=== PATIENT | female | born 2000 | race Two or more races ===

== ENCOUNTER 2024-03-06 22:40 | Emergency (ER) | payer MEDICAID, SELFPAY ==
[2024-03-06 22:42] VITALS: BP 115/62; PULSE 97; RESP 17; TEMP 36.6; O2SAT 99; BMI 31.9
--- NOTE | 2024-03-07 | ECG_ITS ---
Test Reason : PASSED OUT Blood Pressure : / mmHG Vent. Rate : 074 BPM Atrial Rate : 074 BPM P-R Int : 168 ms QRS Dur : 094 ms QT Int : 392 ms P-R-T Axes : 065 024 053 degrees QTc Int : 435 ms Normal sinus rhythm Normal ECG No previous ECGs available Referred By: Generic ED Physician Electronically Signed By:JOSSIE HAWTHORNE MD
--- NOTE | 2024-03-07 00:29 | PC.NURSE ---
This RN called to triage lab room, pt had syncopal episode and slumped over in chair, alert and oriented, incontinent episode as well. HR 50, BP:121/75, O2:99% on room air. EKG ordered, lard maker notified and pt will be brought back to room.
[2024-03-07 00:30] LABS: MANUAL DIFF FLAG NO
[2024-03-07 00:31] VITALS: BP 121/75; PULSE 50; RESP 14; O2SAT 99
[2024-03-07 00:32] LABS: Basophils Percent Auto 0.5 % (0-2); Eosinophils Absolute Auto 0.2 X10*3/uL (0.0-0.4); Eosinophils Percent Auto 3.4 % (0-4); Hematocrit 41.6 % (37.0-47.0); Hemoglobin 14.2 g/dl (12.0-16.0); Imm Gran Abs Auto 0.01 X10*3/uL (0.00-0.03); Imm Gran Pct Auto 0.2 % (0.0-0.4); Lymphocytes Absolute Auto 2.2 X10*3/uL (1.2-4.9); Lymphocytes Percent Auto 39.6 % (20-40); Mean Corpuscular HGB Conc 34.1 g/dl (31.0-35.0); Mean Corpuscular Volume 85.1 fL (80.0-98.0); Mean Platelet Volume 9.6 fL (9.4-12.3); Monocytes Absolute Auto 0.3 X10*3/uL (0.1-1.2); Monocytes Percent Auto 5.8 % (2-11); Neutrophils Absolute Auto 2.9 x10*3/uL (2.0-8.3); Neutrophils Percent Auto 50.5 % (45-73); Platelet Count 227 X10*3/uL (160-400); Red Blood Count 4.89 X10*6/uL (4.20-5.50); Red Cell Distribution Width 12.7 % (11.0-16.0); White Blood Count 5.7 X10*3/uL (4.8-10.8)
--- NOTE | 2024-03-07 00:36 | ED.ABDPAIN ---
HPI - Abdominal Pain General Chief Complaint: Abdominal Pain Stated Complaint: upper abd pain/sharp pains when walking/vomiting Time Seen by Provider: 03/07/24 00:36 Source: patient Mode of arrival: ambulatory Limitations: no limitations History of Present Illness ED Provider: kirti MTZ narrative: Patient's history of gastritis in the past noticed pain in the epigastric and right upper quadrant since 15:00 after eating rice and beans. Slight nausea no vomiting no urinary complaints also complaining of pain in the thyroid no fever no chills Related Data Previous Rx's ?Medication ?Instructions ?Recorded sucralfate 1 gram tablet 1 g PO TID #90 tabs 03/07/24 Allergies Allergy/AdvReac Type Severity Reaction Status Date / Time latex Allergy Hives Verified 03/06/24 22:48 tramadol Allergy Anaphylaxis Verified 03/06/24 22:48 Review of Systems Review of Systems Yes all other systems are reviewed and are negative [facility] Social History Social History Advance Directives: No Advance Directives Information Provided: Yes Do you have a plan to hurt others: No Plan Physical Exam ED Vital Signs: Vital Signs - 24 hr 03/06/24 22:42 03/07/24 00:31 Temperature 98 F Pulse Rate 97 50 Respiratory Rate 17 14 Blood Pressure 115/62 121/75 Pulse Oximetry 99 99 Oxygen Delivery Method Room Air Room Air BMI result Body Mass Index 31.9 Appearance: Alert. Oriented X3. No acute distress. Eyes: No pallor or icterus ENT: Pharynx normal. Oral Mucosa moist Neck: Normal inspection. Neck supple. CVS: Normal heart rate and rhythm. Pulses normal. Respiratory: No respiratory distress. Equal air entry bilateral, no wheezing/rales/rhonchi Abdomen: Soft , mild epigastric tenderness and right upper quadrant tenderness no rebound tenderness or guarding Bowel sounds are present, no mass palpable, no CVA tenderness Skin: Skin warm and dry. Normal skin color. Normal skin turgor. Neuro: Oriented X 3. No motor deficit. Medical Decision Making Medical Decision Making [facility] Narrative: Bedside ultrasound done by myself showed empty all bladder without wall thickening or fluid collection Hancock sign negative, labs are stable patient without any significant distress discharge patient home on sucralfate advised to continue Prilosec Differential Diagnosis Differential Diagnoses: The differential diagnosis associated with the presentation includes Gastritis/cholelithiasis/biliary colic/UTI Lab Data MDM Lab Attestation statement: I reviewed the patient's lab results. 03/07/24 00:26 03/07/24 00:26 Labs: Lab Results 03/07/24 03/07/24 Range/Units 00:26 01:13 WBC 5.7 (4.8-10.8) X10*3/uL RBC 4.89 (4.20-5.50) X10*6/uL Hgb 14.2 (12.0-16.0) g/dl Hct 41.6 (37.0-47.0) % MCV 85.1 (80.0-98.0) fL MCH 29.0 (27.0-33.0) pg MCHC 34.1 (31.0-35.0) g/dl RDW 12.7 (11.0-16.0) % Plt Count 227 (160-400) X10*3/uL MPV 9.6 (9.4-12.3) fL Immature Gran % (Auto) 0.2 (0.0-0.4) % Neut % (Auto) 50.5 (45-73) % Lymph % (Auto) 39.6 (20-40) % Phelps % (Auto) 5.8 (2-11) % Eos % (Auto) 3.4 (0-4) % Baso % (Auto) 0.5 (0-2) % Lymph # (Auto) 2.2 (1.2-4.9) X10*3/uL Phelps # (Auto) 0.3 (0.1-1.2) X10*3/uL Eos # (Auto) 0.2 (0.0-0.4) X10*3/uL Baso # (Auto) 0.0 (0.0-0.2) X10*3/uL Abs Immat Gran (auto) 0.01 (0.00-0.03) X10*3/uL Absolute Neuts (auto) 2.9 (2.0-8.3) x10*3/uL Absolute Nucleated RBC 0.000 (0.0-0.012) X10*3/uL Nucleated RBC % (auto) 0.0 (0.0-0.2) /100WBC Sodium 142 (135-145) mmol/L Potassium 3.8 (3.3-5.1) mmol/L Chloride 110 H (96-108) mmol/L Carbon Dioxide 23 (22-29) mmol/L Anion Gap 13 (12-20) BUN 11 (9-16) mg/dL Creatinine 0.63 (0.5-1.4) mg/dL Estim Creat Clear Calc 140.4 Estimated GFR > 60 Random Glucose 87 (60-115) mg/dL Calcium 9.6 (8.4-10.2) mg/dL Total Bilirubin 0.3 (0.0-1.0) mg/dL AST 15 (5-31) U/L ALT 10 (0-31) U/L Alkaline Phosphatase 55 (39-117) U/L Total Protein 7.4 (6.5-8.0) g/dL Albumin 4.3 (3.5-5.0) g/dL Lipase 33 (8-78) U/L TSH 2.42 (0.32-4.0) uIU/mL Urine Color Yellow Urine Appearance Cloudy Urine pH 8.0 (5.0-9.0) Ur Specific [place] 1.025 (1.005-1.025) Urine Protein Trace (Neg-Trace) mg/dL Urine Glucose (UA) Negative (Negative) mg/dL Urine Ketones Negative (Negative) mg/dL Urine Blood Moderate (2+) H (Negative) Urine Nitrite Negative (Negative) Ur Leukocyte Esterase Small (1+) H (Negative) Urine RBC 11-20 H (0-2) /HPF Urine WBC 21-50 H (0-5) /HPF Ur Squamous Epith Cells 11-20 (0-2) /HPF Urine Bacteria Trace (None Seen) Hyaline Casts 0-2 (0-2) /LPF Medications Administered Discontinued Medications Generic Name Dose Route Start Last Admin Trade Name Freq PRN Reason Stop Dose Admin Al Hydroxide/Mg Hydroxide 30 ml 03/07/24 01:02 03/07/24 01:09 Magnesium Hydrox/Alum Hydrox 30 Ml Oral.Susp PO 03/07/24 01:03 30 ml ONCE ONE Administration Lidocaine HCl 15 ml 03/07/24 01:02 03/07/24 01:09 Lidocaine Hcl Viscous 2 % 15 Ml Solution MUCOUS MEM 03/07/24 01:03 15 ml ONCE ONE Administration Discharge Plan Discharge Clinical Impression: Acute gastritis Patient Disposition: Home, Self-Care Instructions: Gastritis (ED) Additional Instructions: Continue take your omeprazole Avoid fried food Sucralfate 1 tablet half an hour before meals Follow with PCP if not better/vomiting Prescriptions: New sucralfate 1 gram tablet 1 g PO TID Qty: 90 0RF Print Language: Greenlandic
[2024-03-07 00:54] LABS: Alanine Aminotransferase 10 U/L (0-31); Albumin Level 4.3 g/dL (3.5-5.0); Alkaline Phosphatase 55 U/L (39-117); Anion Gap 13 (12-20); Aspartate Amino Transferase 15 U/L (5-31); Bilirubin Total 0.3 mg/dL (0.0-1.0); Blood Urea Nitrogen 11 mg/dL (9-16); Calcium 9.6 mg/dL (8.4-10.2); Carbon Dioxide 23 mmol/L (22-29); Chloride 110 mmol/L (96-108); Creatinine Clr Calc Pharmacy 140.4; Estimated Glomerular Filt Rate > 60; Glucose Random 87 mg/dL (60-115); Lipase 33 U/L (8-78); Potassium 3.8 mmol/L (3.3-5.1); Sodium 142 mmol/L (135-145); Total Protein 7.4 g/dL (6.5-8.0)
[2024-03-07 01:08] LABS: TSH reflex Free T4 2.42 uIU/mL (0.32-4.0)
[2024-03-07] MEDS: Lidocaine HCl Viscous 2 % 15 ML SOLUTION MUCOUS MEM (01:09)
[2024-03-07] MEDS: Magnesium Hydrox/Alum Hydrox 30 ML ORAL.SUSP PO (01:09)
--- NOTE | 2024-03-07 01:12 | PC.NURSE ---
medication administered per provider order. effectiveness pending. UA obtained/sent to lab.
[2024-03-07 01:20] LABS: Appearance Urine Cloudy; Color Urine Yellow; Glucose Urine UA Negative (Negative); Leukocyte Esterase Urine Small (1+) (Negative); Nitrite Urine Negative (Negative); Specific Gravity - Urine 1.025 (1.005-1.025); UMIC TRIGGER UACC YES; Urine Blood Moderate (2+) (Negative); Urine Ketones Negative (Negative); Urine Protein Trace mg/dL (Neg-Trace)
[2024-03-07 01:24] LABS: Bacteria Urine Trace (None Seen); Hyaline Casts Urine 0-2 /LPF (0-2); UACC Culture Trigger YES; WBC Urine 21-50 /HPF (0-5)
[2024-03-07 01:48] VITALS: BP 102/57; PULSE 71; RESP 17; TEMP 36.6; O2SAT 100
[2024-03-07 01:56] VITALS: BP 102/57; PULSE 71; RESP 17; TEMP 36.8; O2SAT 100
== END 2024-03-07 01:56 | disposition home or self-care (01) ==
PROVIDERS: Emergency Provider Internal Medicine
DX: K29.00 Acute gastritis without bleeding (principal); R10.10 Upper abdominal pain, unspecified; R10.13 Epigastric pain; R11.2 Nausea with vomiting, unspecified; Z79.899 Other long term (current) drug therapy
CPT/HCPCS: 36415; 80053; 81001; 83690; 84443; 85025; 87086; 93005; 99283; 99284

== ENCOUNTER → 2024-03-07 00:31 | Outpatient (BNV) | payer MEDICAID, SELFPAY | PROVIDERS: Emergency Provider Internal Medicine; Visit Provider Internal Medicine Cardiovascular Disease | DX: R55 Syncope and collapse (principal) | CPT/HCPCS: 93010 ==